=== PATIENT | male | born 1990 | race American Indian/Alaskan Native ===

== ENCOUNTER 2016-11-23 18:22 | Emergency (ER) | payer SELFPAY ==
[2016-11-23 18:39] VITALS: RESP 18; TEMP 97.7
--- NOTE | 2016-11-23 19:57 | C.PDOC ---
History Of Present Illness 26 year old male presents to the ED for the evaluation of left index finger pain that developed 3 days ago after sustaining an injury. Patient reports that "I fell down and the left index finger came out of place and I was able to put it back." Patient states that the finger has been in pain ever since. Patient notes that pain is localized and worse with movement. Patient denies any obvious deformity, weakness, sensory or vascular changes to the left hand, or any other active complaints. Noted multiple abrasion to head and injured hand. Patient's tetanus is not up to date and patient currently refuses one. Time Seen by Provider: 11/23/16 19:04 Chief Complaint (Nursing): Finger,Hand,&Wrist History Per: Patient History/Exam Limitations: no limitations Onset/Duration Of Symptoms: Days (3) Current Symptoms Are (Timing): Still Present Quality: "Pain" Severity: Mild Exacerbating Factor(s): Movement Recent travel outside of the [place]: No Past Medical History Reviewed: Historical Data, Nursing Documentation, Vital Signs Vital Signs: Last Vital Signs Temp 97.7 F 11/23/16 18:38 Pulse 72 11/23/16 20:24 Resp 18 11/23/16 20:24 BP 100/64 11/23/16 20:24 Pulse Ox 98 11/23/16 20:24 - Medical History PMH: No Chronic Diseases Family History: States: No Known Family Hx - Social History Hx Tobacco Use: No Hx Alcohol Use: No Hx Substance Use: No - Immunization History Hx Tetanus Toxoid Vaccination: No Hx Influenza Vaccination: No Hx Pneumococcal Vaccination: No Review Of Systems Except As Marked, All Systems Reviewed And Found Negative. Constitutional: Negative for: Fever, Chills Gastrointestinal: Negative for: Nausea, Vomiting, Diarrhea Musculoskeletal: Positive for: Other (Left index finger pain) Neurological: Negative for: Weakness, Numbness Physical Exam - Physical Exam Appears: Well, Non-toxic, No Acute Distress Skin: Warm, Dry, Other (superficial well healing abrasin to left hand and face) Head: Atraumatic, Normacephalic Eye(s): bilateral: PERRL Nose: No Deformity, No Tenderness Oral Mucosa: Moist Neck: Normal ROM, Trachea Midline, No Midline Cervical Tenderness, No Paracervical Tenderness, No Step Off Deformity, Supple Chest: Symmetrical, No Deformity, No Tenderness Back: No Vertebral Tenderness, No Paraspinal Tenderness Extremity: Normal ROM (mild discomfort to left index finger to flexion over 2nd MCPj and PIPJ due to pain. No palpable deformity.), Tenderness (over Left 2nd MCPJ and PIPJ with mild nos edema, (+) abrasion, well healing. No neurovascular deficist distally to injury.), Capillary Refill (less than 2sec ) Neurological/Psych: Oriented x3, Normal Speech, Normal Motor, Normal Sensation, Normal Reflexes ED Course And Treatment O2 Sat by Pulse Oximetry: 100 - Other Rad Left hand X-Ray: Interpreted by Me Interpretation: (+) comminuted left proximal 2nd phalanx fx Progress Note: Splint to left hand applied. Analgesics, tetanus, abx offered to patient-refused at present time. results discussed with pt and ref. to F/u with hand specialist. Pt understand, stable for discharge now. Orthopedic Time Performed: 19:30 Time Out: Side verified, Site verified, Patient ID confirmed Procedure: Splint Type: Short Location: Left Consent obtained: Verbal Performed by: Mid-level Provider Diagnosis: Fracture Type: Comminuted Location: Left, Proximal Bone: Phalanx Disposition Counseled Patient/Family Regarding: Studies Performed, Diagnosis, Need For Followup, Rx Given - Disposition Referrals: Clinic,Med Surg [Primary Care Provider] - Michelle Hoffman MD [Provisional Staff] - Disposition: HOME/ ROUTINE Disposition Time: 19:55 Condition: STABLE Additional Instructions: Splint Take medication as prescribed Follow up with hand specialist in 2-3 days for re0-evaluation. Return to ED if any worsening or new changes. Prescriptions: Cephalexin [cephalexin] 500 mg PO Q6 #28 cap traMADol [Ultram] 50 mg PO TID #7 tab Instructions: Finger Fracture (ED) - Clinical Impression Clinical Impression: Finger fracture - Scribe Statement The provider has reviewed the documentation as recorded by the Scribe Jef Ferrell All medical record entries made by the Scribe were at my direction and personally dictated by me. I have reviewed the chart and agree that the record accurately reflects my personal performance of the history, physical exam, medical decision making, and the department course for this patient. I have also personally directed, reviewed, and agree with the discharge instructions and disposition.
[2016-11-23 20:25] VITALS: BP 100/64; PULSE 72
[2016-11-23 21:04] VITALS: O2SAT 100
--- NOTE | 2016-11-24 10:32 | RAD ---
PROCEDURE: Left Index finger radiographs. HISTORY: injury COMPARISON: None. TECHNIQUE: AP radiograph of the left hand, as well as spot oblique and lateral images of index finger were obtained. FINDINGS: LEFT INDEX FINGER: Acute comminuted fracture at the proximal phalanx of the index finger noted. Remainder of the left hand (as seen on the AP view) grossly intact. JOINTS: Normal. SOFT TISSUES: Normal. OTHER FINDINGS: None. IMPRESSION: Acute fracture at the proximal phalanx of the index finger.
== END 2016-11-23 20:26 | disposition home or self-care (01) ==
LOC: C.ER 18:22 → SUPCPDRO 18:22 → C.ER 20:26
DX: S62.611A Displaced fracture of proximal phalanx of left index finger, initial encounter for closed fracture (principal); W18.30XA Fall on same level, unspecified, initial encounter